=== PATIENT | female | born 1950 | race African-American/Black ===

== ENCOUNTER → 2016-04-27 | Outpatient (CLI) | payer MEDICARE, OTHER ==
[~2016-04-27] MED LIST: ACETAMINOPHEN PO; ALDACTONE PO; ALDACTONE25 MG PO; AMIODARONE PO; ASPIRINEC PO; BUMEX PO; BUMEX1 MG PO; CEPHALEXIN500 M1 PO; COREG PO; DARVOCET-N 1001 TAB PO; GLIPIZIDE10 MG PO; GLUCOPHAGE XR500 MG PO; IBUPROFEN; KCL PO; KEFLEX PO; KLOR-CON; LEVAQUIN PO; LISINOPRIL PO; LOTREL 5/20 MG1 CAP; LOTREL 5/20 MG1 CAP PO; MAXZIDE-25 MG1 UDTAB; MEDROL DOSEPAK4 MG PO; METFORMIN HCL500 M1 PO; METFORMIN PO; MICRO-K PO; NORCO 5/325 TAB1 TAB PO; PAXIL PO; PRILOSEC PO; TYLOX 5/500 CAP1 CAP PO; ZOCOR20 MG PO; ZYRTEC PO
[2016-04-27 12:57] LABS: BASOPHIL% 0.3 % (0-2.5); DIFF IND YES; EOSINOPHIL# 0.4 X10e3 (0-0.7); EOSINOPHIL% 6.9 % (0.0-7.0); HEMATOCRIT 45.2 % (35.0-45.0); HEMOGLOBIN 14.2 gm/dL (12.0-16.0); MEAN CELL VOLUME 87.1 FL (83-96); MEAN CORPUSCULAR HEMOGLOBIN 27.3 PG (28-34); MEAN CORPUSCULAR HGB CONC 31.3 g/dL (30-36); MEAN PLATELET VOLUME 8.6 FL (6.5-11.5); MONOCYTE# 0.7 X10e3 (0-1.0); MONOCYTE% 12.2 % (3.0-12.0); NEUTROPHIL# 2.9 X10e3 (1.5-7.1); NEUTROPHIL% 47.6 % (40-75); PLATELET COUNT 213 X10e3 (140-420); RED BLOOD COUNT 5.19 X10e (3.90-5.30); RED CELL DISTRIBUTION WIDTH 13.8 % (11.0-15.5)
[2016-04-27 13:05] LABS: INR 1.4; PROTHROMBIN TIME (PATIENT) 15.3 SECONDS (9.6-11.5)
[2016-04-27 13:16] LABS: PLATELET ESTIMATE NORMAL (NORMAL)
[2016-04-27 13:37] LABS: ALBUMIN SERUM 3.9 g/dL (3.5-5.0); ALKALINE PHOSPHATASE 90 U/L (32-92); ALT (SGPT) 59 U/L (10-40); AST (SGOT) 46 U/L (10-42); BILIRUBIN,TOTAL 0.7 mg/dL (0.2-2.0); BLOOD UREA NITROGEN 12 mg/dL (9-23); BUN/CREATININE RATIO 17.14; CALCIUM SERUM 9.5 mg/dL (8.4-10.2); CARBON DIOXIDE 29 mmol/L (22-31); CHLORIDE 99 mmol/L (100-111); CHOLESTEROL 153 mg/dL (0-200); CPK (CREATINE PHOSPHOKINASE) 69 IU/L (26-140); CREATININE SERUM 0.7 mg/dL (0.6-1.4); GLOM FILT RATE Estimated ABOVE60 mL/min (>60); GLUCOSE FASTING 323 mg/dL (70-110); HDL CHOLESTEROL 49 mg/dL (35-95); LDL CHOLESTEROL 77 mg/dL (-130); LDL/HDL RATIO 2 RATIO (0-4); MAGNESIUM 1.7 mg/dL (1.6-3.0); PHOSPHOROUS 3.5 mg/dL (2.5-4.6); POTASSIUM 4.7 mmol/L (3.5-5.1); PROTEIN TOTAL SERUM 6.8 g/dL (6.0-8.3); SODIUM 136 mmol/L (135-145); TRIGLYCERIDES 136 mg/dL (10-160); URIC ACID 3.2 mg/dL (2.6-7.2)
== END | disposition home or self-care (01) ==
LOC: CTPL 11:29
PROVIDERS: Internal Medicine Cardiovascular Disease
DX: Z48.21 Encounter for aftercare following heart transplant (principal); I12.9 Hypertensive chronic kidney disease with stage 1 through stage 4 chronic kidney disease, or unspecified chronic kidney disease; N18.9 Chronic kidney disease, unspecified; E78.5 Hyperlipidemia, unspecified; E83.42 Hypomagnesemia; E11.8 Type 2 diabetes mellitus with unspecified complications; I82.629 Acute embolism and thrombosis of deep veins of unspecified upper extremity; I82.409 Acute embolism and thrombosis of unspecified deep veins of unspecified lower extremity; I27.82 Chronic pulmonary embolism; Z94.1 Heart transplant status; Z79.899 Other long term (current) drug therapy
CPT/HCPCS: 36415; 80053; 80061; 80195; 82550; 83036; 83735; 84100; 84550; 85025; 85610

== ENCOUNTER → 2016-05-11 | Outpatient (CLI) | payer MEDICARE, OTHER ==
[2016-05-11 12:41] LABS: BASOPHIL# 0.1 X10e3 (0-0.3); BASOPHIL% 1.2 % (0-2.5); EOSINOPHIL# 0.2 X10e3 (0-0.7); EOSINOPHIL% 5.3 % (0.0-7.0); HEMATOCRIT 43.1 % (35.0-45.0); HEMOGLOBIN 13.8 gm/dL (12.0-16.0); LYMPHOCYTE# 1.7 X10e3 (1.0-3.5); LYMPHOCYTE% 36.3 % (17.0-45.0); MEAN CELL VOLUME 85.8 FL (83-96); MEAN CORPUSCULAR HEMOGLOBIN 27.5 PG (28-34); MEAN PLATELET VOLUME 7.7 FL (6.5-11.5); MONOCYTE# 0.6 X10e3 (0-1.0); MONOCYTE% 12.4 % (3.0-12.0); NEUTROPHIL# 2.1 X10e3 (1.5-7.1); NEUTROPHIL% 44.8 % (40-75); PLATELET COUNT 213 X10e3 (140-420); RED BLOOD COUNT 5.01 X10e (3.90-5.30); RED CELL DISTRIBUTION WIDTH 13.8 % (11.0-15.5); WHITE BLOOD COUNT 4.6 X10e3 (4.0-10.5)
[2016-05-11 12:42] LABS: DIFF IND NO
[2016-05-11 12:43] LABS: INR 1.2; PROTHROMBIN TIME (PATIENT) 12.3 SECONDS (9.6-11.5)
[2016-05-11 13:20] LABS: ALBUMIN SERUM 3.9 g/dL (3.5-5.0); ALKALINE PHOSPHATASE 79 U/L (32-92); ALT (SGPT) 70 U/L (10-40); AST (SGOT) 57 U/L (10-42); BILIRUBIN,TOTAL 0.5 mg/dL (0.2-2.0); BLOOD UREA NITROGEN 8 mg/dL (9-23); CALCIUM SERUM 9.6 mg/dL (8.4-10.2); CARBON DIOXIDE 28 mmol/L (22-31); CHLORIDE 102 mmol/L (100-111); CHOLESTEROL 161 mg/dL (0-200); CPK (CREATINE PHOSPHOKINASE) 77 IU/L (26-140); CREATININE SERUM 0.5 mg/dL (0.6-1.4); GLOM FILT RATE Estimated ABOVE60 mL/min (>60); GLUCOSE FASTING 248 mg/dL (70-110); HDL CHOLESTEROL 48 mg/dL (35-95); LDL CHOLESTEROL 86 mg/dL (-130); LDL/HDL RATIO 2 RATIO (0-4); MAGNESIUM 1.6 mg/dL (1.6-3.0); POTASSIUM 3.8 mmol/L (3.5-5.1); PROTEIN TOTAL SERUM 6.5 g/dL (6.0-8.3); SODIUM 138 mmol/L (135-145); TRIGLYCERIDES 136 mg/dL (10-160); URIC ACID 3.9 mg/dL (2.6-7.2)
== END | disposition home or self-care (01) ==
LOC: CTPL 11:15
PROVIDERS: Internal Medicine Cardiovascular Disease
DX: Z48.21 Encounter for aftercare following heart transplant (principal); I12.9 Hypertensive chronic kidney disease with stage 1 through stage 4 chronic kidney disease, or unspecified chronic kidney disease; N18.9 Chronic kidney disease, unspecified; E83.42 Hypomagnesemia; E11.9 Type 2 diabetes mellitus without complications; I82.409 Acute embolism and thrombosis of unspecified deep veins of unspecified lower extremity; I82.629 Acute embolism and thrombosis of deep veins of unspecified upper extremity; I27.82 Chronic pulmonary embolism; Z79.01 Long term (current) use of anticoagulants; Z94.1 Heart transplant status
CPT/HCPCS: 36415; 80053; 80061; 80195; 82550; 83735; 84100; 84550; 85025; 85610

== ENCOUNTER → 2016-07-17 | Outpatient (CLI) | payer MEDICARE, OTHER ==
[2016-07-17 09:25] LABS: BASOPHIL# 0.1 X10e3 (0-0.3); BASOPHIL% 1.3 % (0-2.5); EOSINOPHIL# 0.3 X10e3 (0-0.7); EOSINOPHIL% 4.7 % (0.0-7.0); HEMATOCRIT 43.2 % (35.0-45.0); HEMOGLOBIN 13.2 gm/dL (12.0-16.0); LYMPHOCYTE# 2.1 X10e3 (1.0-3.5); LYMPHOCYTE% 36.8 % (17.0-45.0); MEAN CELL VOLUME 86.9 FL (83-96); MEAN CORPUSCULAR HEMOGLOBIN 26.6 PG (28-34); MEAN CORPUSCULAR HGB CONC 30.6 g/dL (30-36); MEAN PLATELET VOLUME 7.7 FL (6.5-11.5); MONOCYTE# 0.7 X10e3 (0-1.0); NEUTROPHIL# 2.6 X10e3 (1.5-7.1); NEUTROPHIL% 44.2 % (40-75); PLATELET COUNT 266 X10e3 (140-420); RED BLOOD COUNT 4.97 X10e (3.90-5.30); RED CELL DISTRIBUTION WIDTH 14.3 % (11.0-15.5); WHITE BLOOD COUNT 5.8 X10e3 (4.0-10.5)
[2016-07-17 09:35] LABS: INR 1.3
[2016-07-17 09:46] LABS: DIFF IND NO
[2016-07-17 11:02] LABS: ALBUMIN SERUM 3.9 g/dL (3.5-5.0); BILIRUBIN,TOTAL 0.5 mg/dL (0.2-2.0); CALCIUM SERUM 9.5 mg/dL (8.4-10.2); CREATININE SERUM 0.5 mg/dL (0.6-1.4); GLOM FILT RATE Estimated 116.1 mL/min (>60); MAGNESIUM 1.5 mg/dL (1.6-3.0); PHOSPHOROUS 3.4 mg/dL (2.5-4.6); POTASSIUM 4.6 mmol/L (3.5-5.1); PROTEIN TOTAL SERUM 6.9 g/dL (6.0-8.3); URIC ACID 3.8 mg/dL (2.6-7.2)
== END | disposition home or self-care (01) ==
LOC: CTPL 08:17
PROVIDERS: Internal Medicine Cardiovascular Disease
DX: Z48.21 Encounter for aftercare following heart transplant (principal); E11.22 Type 2 diabetes mellitus with diabetic chronic kidney disease; I12.9 Hypertensive chronic kidney disease with stage 1 through stage 4 chronic kidney disease, or unspecified chronic kidney disease; N18.9 Chronic kidney disease, unspecified; E78.5 Hyperlipidemia, unspecified; E83.42 Hypomagnesemia; I82.409 Acute embolism and thrombosis of unspecified deep veins of unspecified lower extremity; I27.82 Chronic pulmonary embolism; Z94.1 Heart transplant status; Z79.899 Other long term (current) drug therapy
CPT/HCPCS: 36415; 80053; 80061; 80195; 82550; 83036; 83735; 84100; 84550; 85025; 85610

== ENCOUNTER → 2016-09-14 | Outpatient (CLI) | payer MEDICARE, OTHER ==
--- NOTE | ~2016-09-14 | NM19 ---
[facility] A Service of [facility] RADIOLOGY TEXT RESULTS PATIENT: ANJELICA MCKEON LOCATION: [facility] : 46 UNIT #: [id number] AGE: [address]: ADY DURAND MD SEX: F ORDER DR: [id number] [facility] [address] [place], [place] [address] [id number] O MR#: [id number] Acc #: [id number] NAME: ANJELICA MCKEON : 1950 SEX: F STUDY DATE/TIME: 09/14/2016 9:33 UNIT: [facility] ROOM: STUDY DESCRIPTION: MT Gastric Emptying Study Attending Physician: Ady Durand M.D. Referring Physician: Ady Durand M.D. Ordering Physician: Ady Durand M.D. Primary Care Physician: Ady Durand M.D. MEDICAL IMAGING REPORT This report is preliminary unless electronic signature is present EXAM Gastric emptying scan, 09/14 INDICATIONS Appetite loss and weight loss over the last 2 years. Lower abdominal pain and cramping with nausea and vomiting. History of type 2 diabetes. FINDINGS Images of the abdomen were obtained in the anterior and posterior projections for 105 minutes, after the oral ingestion of 549 mcCi of technetium-99m sulfur colloid in scrambled eggs with water. The T-1/2 of gastric emptying for this patient is 90 minutes, which is at the upper end of normal. Normal at this facility is 65-90 minutes. No gastric outlet obstruction is seen. IMPRESSION Normal solid phase gastric emptying scan, with a T-1/2 of 90 minutes. Dictated by... Jose Last Jr., M.D. THIS IS AN ELECTRONICALLY VERIFIED REPORT Jose Last Jr., M.D. at 09/15/2016 7:10 AM KEY/raudel TD: 09/14/2016 22:36 JOB #: [id number] MEDICAL IMAGING REPORT Page 1 of 1 COPY
== END | disposition home or self-care (01) ==
LOC: CNUC 08:33
DX: R68.81 Early satiety (principal)
CPT/HCPCS: 78264; A9541